=== PATIENT | male | born 1990 | race Caucasian/White ===

== ENCOUNTER 2024-01-09 15:30 | Emergency (ER) | payer BC ==
[2024-01-09] MEDS: Lidocaine 1% 5 ML VIAL INJECT ONE (18:45)
[2024-01-09] MEDS: Bacitracin Oint 1 GM U/D Packet TOP ONE (18:50)
[2024-01-09] MEDS: Diphtheria/Tetanus Toxoids,Adult (Td) 0.5 ML SDV IM ONE (19:08)
== END 2024-01-09 19:30 | disposition home or self-care (01) ==
LOC: LB.ED 15:30
DX: S61.412A Laceration without foreign body of left hand, initial encounter (principal); Z23 Encounter for immunization; W23.1XXA Caught, crushed, jammed, or pinched between stationary objects, initial encounter
CPT/HCPCS: 12001; 90471; 90714; 99282-25